=== PATIENT | male | born 1990 | race African-American/Black ===

== ENCOUNTER 2019-06-19 12:18 | Emergency (ER) | payer MEDICAID ==
[~2019-06-19] VITALS: Ht 177.8 cm; Wt 79.4 kg
[2019-06-19 12:23] VITALS: BP 120/88
--- NOTE | 2019-06-19 12:27 | NUR ---
CAME TO ER TODAY , FOR RX - SEROQUEL TO HELP ME SLEEP; HE RELAPSED AND USE METH- NO HE CANNOT SLEEP FOR 3 DAYS
--- NOTE | 2019-06-19 12:28 | NUR ---
DENIES SUICIDAL IDEATION
== END 2019-06-19 13:06 | disposition home or self-care (01) ==
LOC: ER 12:21
DX: F15.10 Other stimulant abuse, uncomplicated (principal); G47.00 Insomnia, unspecified; F41.9 Anxiety disorder, unspecified; F32.9 Major depressive disorder, single episode, unspecified